=== PATIENT | female | born 1965 ===

== ENCOUNTER 2017-08-20 07:18 | Emergency (ER) | payer SELFPAY ==
--- NOTE | 2017-08-20 08:11 | UC ---
Shoulder Pain HPI - HPI Summary HPI Summary: 2 days of right shoulder pain began after lifting a dog and putting it in to a cage at work. - History of Current Complaint Chief Complaint: UCUpperExtremity Stated Complaint: RIGHT SHOULDER Time Seen by Provider: 08/20/17 08:04 Hx Obtained From: Patient ?: No Onset/Duration: Sudden Onset, Lasting Days - 2, Worse Since - daily Timing: Constant Severity Initially: Severe Severity Currently: Severe Location Of Pain: Is Discrete @ - anterior right shoulder Pain Intensity: 10 Pain Scale Used: 0-10 Numeric Character: Aching, Stiffness Aggravating Factor(s): Movement Alleviating Factor(s): OTC Meds Associated Signs And Symptoms: Positive: Negative Related History: Occupational Injury, Dominant Hand Right - Allergies/Home Medications Allergies/Adverse Reactions: Allergies Allergy/AdvReac Type Severity Reaction Status Date / Time Codeine Allergy Severe Nausea And Verified 08/20/17 07:38 Vomiting Hydrocodone Allergy Severe Nausea And Verified 08/20/17 07:37 Vomiting Morphine Allergy Severe Nausea And Verified 08/20/17 07:37 Vomiting PMH/Surg Hx/FS Hx/Imm Hx Previously Healthy: No Respiratory History: COPD GI/ History: Gastroesophageal Reflux - Surgical History Surgical History: Yes Surgery Procedure, Year, and Place: Hysterectomy age 19. Ovary Removed - Family History Known Family History: Positive: None - Social History Occupation: Employed Full-time Lives: With Family Alcohol Use: Rare Substance Use Type: None Smoking Status (MU): Current Some Day Smoker Amount Used/How Often: ppd Have You Smoked in the Last Year: Yes Household Exposure Type: Cigarettes Cessation Counseling: Counseled 3+Min - 10 Min Review of Systems Constitutional: Negative Skin: Negative Eyes: Negative ENT: Negative Respiratory: Negative Cardiovascular: Negative Gastrointestinal: Negative Genitourinary: Negative Motor: Decreased ROM - right shoulder Neurovascular: Negative Musculoskeletal: Arthralgia - right shoulder Neurological: Negative Psychological: Negative Is Patient Immunocompromised?: No All Other Systems Reviewed And Are Negative: Yes Physical Exam Triage Information Reviewed: Yes Appearance: Ill-Appearing - appears older than statred age, Pain Distress, Thin Vital Signs: Initial Vital Signs Temp 97.1 F 08/20/17 07:27 Pulse 91 08/20/17 07:27 Resp 16 08/20/17 07:27 BP 151/76 08/20/17 07:27 Pulse Ox 97 08/20/17 07:27 Vital Signs Reviewed: Yes Eye Exam: Normal Eyes: Positive: Conjunctiva Clear ENT Exam: Normal ENT: Positive: Normal ENT inspection, Hearing grossly normal. Negative: Nasal congestion, Nasal drainage, Trismus, Muffled voice, Hoarse voice Dental Exam: Normal Neck exam: Normal Neck: Positive: Supple, Nontender Respiratory Exam: Normal Respiratory: Positive: Chest non-tender, No respiratory distress, No accessory muscle use Cardiovascular Exam: Normal Cardiovascular: Positive: RRR, No Murmur, Brisk Capillary Refill Musculoskeletal Exam: Other Musculoskeletal: Positive: No Edema, Strength Limited @, ROM Limited @ Neurological Exam: Normal Neurological: Positive: Alert, Muscle Tone Normal Psychological Exam: Normal Skin Exam: Normal Diagnostics - Radiology No standard instances Xray Interpretation: No Acute Changes Radiology Interpretation Completed By: ED Physician, Radiologist Shoulder Course/Dx - Course Assessment/Plan: ibuprofen, physical therapy, follow with ortho, follow bp with pcp - Differential Dx/Diagnosis Provider Diagnoses: nicotine dependent, elevated BP without diagnosis of Hypertension, right shoulder strain Discharge - Discharge Plan Condition: Stable Disposition: HOME Prescriptions: Ibuprofen TAB* [Motrin TAB* 600 MG] 600 mg PO Q6H PRN #30 tab PRN Reason: Pain Patient Education Materials: How to Stop Smoking (ED), Hypertension (ED), Shoulder Pain (ED), Exercises for Shoulder Flexion and Extension (ED), Exercises for Internal and External Shoulder Rotation (ED), Exercises for Shoulder Abduction and Adduction (ED) Forms: *Work Release Referrals: Cortney Carter MD [Primary Care Provider] - 1 Week Cole Perkins MD [Medical Doctor] - 3 Days ()
--- NOTE | 2017-08-20 09:00 | RAD ---
INDICATION: Right shoulder pain after lifting COMPARISON: None. TECHNIQUE: 4 views of the right shoulder were obtained. FINDINGS: The adequately corticated bones are in normal alignment. Joint spaces appear maintained. No fracture, dislocation or focal bony abnormality is seen. IMPRESSION: Normal radiograph of the right shoulder. If the patient's symptoms persist, follow-up imaging is recommended.
[2017-08-20] MEDS ORDERED: Ibuprofen TAB* 600 MG PO ONE (09:07)
== END 2017-08-20 09:35 | disposition home or self-care (01) ==
LOC: UCEAST 07:18
DX: S46.911A Strain of unspecified muscle, fascia and tendon at shoulder and upper arm level, right arm, initial encounter (principal); X50.0XXA Overexertion from strenuous movement or load, initial encounter; Y93.89 Activity, other specified; Y92.9 Unspecified place or not applicable; Y99.9 Unspecified external cause status; F17.200 Nicotine dependence, unspecified, uncomplicated; R03.0 Elevated blood-pressure reading, without diagnosis of hypertension
CPT/HCPCS: 99213; A9270-GY; G0463

== ENCOUNTER 2019-06-09 15:05 | Emergency (ER) | payer BC, OTHER ==
[2019-06-09] MEDS ORDERED: Nitroglycerin TAB 0.4 MG* 0.4 MG TAB SL ONE (15:53)
--- NOTE | 2019-06-09 15:53 | ED ---
HPI Chest Pain - HPI Summary HPI Summary: This pt is a 54 Y/O F presenting to [facility] with a CC of left anterior CP that has been present since eating 2-3 bites of her sandwich at 1330 and is currently rated a 10/10 in severity. She states that she can feel it radiating into her back. She states that she has a little bit of associated nausea but has not vomited yet. She states that when she swallows her pain is increased. She was diaphoretic and had chills at the onset of the pain. She denies any recent travel, new edema in her legs, vomiting, headaches, and SOB. She states that there is a large family history of cardiac and stroke issues including Hx of CVAs in her younger siblings, and MIs in her older sister. She has a PMHx of a mitral valve collapse and COPD. She recently was diagnosed with a hiatal hernia. - History of Current Complaint Chief Complaint: EDChestPainROMI Time Seen by Provider: 06/09/19 15:26 Hx Obtained From: Patient Onset/Duration: Started Hours Ago - 2, Still Present Time of Onset: 13:30 Timing: Constant Initial Severity: Severe Current Severity: Severe Pain Intensity: 10 Pain Scale Used: 0-10 Numeric Chest Pain Location: Left Anterior Chest Pain Radiates: Yes Chest Pain Radiates To:: Back Aggravating Factor(s): Other: - swallowing food or liquid Alleviating Factor(s): Nothing Associated Signs and Symptoms: Positive: Chest Pain - Left anterior, Chills, Diaphoresis, Nausea, Back Pain - radiated back pain. Negative: Headaches, Shortness of Breath, Fever, Vomiting, Edema - Allergy/Home Medications Allergies/Adverse Reactions: Allergies Allergy/AdvReac Type Severity Reaction Status Date / Time codeine Allergy Severe Nausea And Verified 06/09/19 17:39 Vomiting hydrocodone Allergy Severe Nausea And Verified 06/09/19 17:39 Vomiting morphine Allergy Severe Nausea And Verified 06/09/19 17:39 Vomiting Home Medications: Home Medications Fluticasone-Salmeterol 500-50* [Advair Diskus 500-50*] 1 puff INH BID 06/09/19 [ History Confirmed 06/09/19] Levalbuterol Tartrate [Levalbuterol Tartrate Hfa] 1 dose INH DAILY 06/09/19 [ History Confirmed 06/09/19] PMH/Surg Hx/FS Hx/Imm Hx Endocrine/Hematology History: Denies: Hx Diabetes, Hx Thyroid Disease Cardiovascular History: Denies: Hx Hypertension Respiratory History: Reports: Hx Chronic Obstructive Pulmonary Disease (COPD) Denies: Hx Asthma GI History: Denies: Hx Ulcer - Surgical History Surgery Procedure, Year, and Place: Hysterectomy age 19. Ovary Removed Infectious Disease History: No Infectious Disease History: Reports: Hx Clostridium Difficile - Denies: Hx Hepatitis, Hx Human Immunodeficiency Virus (HIV), Hx of Known/ Suspected MRSA, Hx Shingles, Hx Tuberculosis, Hx Known/Suspected VRE, Hx Known/ Suspected VRSA, History Other Infectious Disease, Traveled Outside the [place] in Last 30 Days - Family History Known Family History: Positive: None - Social History Alcohol Use: Rare Substance Use Type: Reports: None Smoking Status (MU): Current Some Day Smoker Amount Used/How Often: ppd Have You Smoked in the Last Year: Yes Review of Systems Positive: Chills, Skin Diaphoresis. Negative: Fever Positive: Chest Pain - Left anterior Negative: Shortness Of Breath Positive: Nausea. Negative: Vomiting Negative: Edema Negative: Headache All Other Systems Reviewed And Are Negative: Yes Physical Exam - Summary Physical Exam Summary: Constitutional: Well-developed, Well-nourished, Alert. (-) Distressed Skin: Warm, Dry HENT: Normocephalic; Atraumatic Eyes: Conjunctiva normal Neck: Musculoskeletal ROM normal neck. (-) JVD, (-) Stridor, (-) Tracheal deviation Cardio: Rhythm regular, rate normal, Heart sounds normal; Intact distal pulses; The pedal pulses are 2+ and symmetric. Radial pulses are 2+ and symmetric. (-) Murmur Pulmonary/Chest wall: Effort normal. (-) Respiratory distress, (-) Wheezes, (-) Rales Abd: Soft, Mild epigastric tenderness, (-) Distension, (-) Guarding, (-) Rebound Musculoskeletal: (-) Edema Lymph: (-) Cervical adenopathy Neuro: Alert, Oriented x3 Psych: Mood and affect Normal Triage Information Reviewed: Yes Vital Signs On Initial Exam: Initial Vitals Temp Pulse Resp BP Pulse Ox 98.1 F 89 14 154/82 98 06/09/19 15:10 06/09/19 15:10 06/09/19 15:10 06/09/19 15:10 06/09/19 15:10 Vital Signs Reviewed: Yes Diagnostics - Vital Signs Vital Signs Temp Pulse Resp BP Pulse Ox 06/09/19 15:10 98.1 F 89 14 154/82 98 - Laboratory Result Diagrams: 06/09/19 15:54 06/09/19 15:54 Lab Statement: Any lab studies that have been ordered have been reviewed, and results considered in the medical decision making process. - Radiology CXR Radiology Interpretation Completed By: Radiologist Summary of Radiographic Findings: No acute cardiopulmonary diseaes. ED physician has reviewed this report. - EKG 1507 Cardiac Rate: NL - 94 BPM EKG Rhythm: Sinus Rhythm Ectopy: None Summary of EKG Findings: EKG taken at 1507 found a NSR at 94 BPM, minimal ST depression in AVF 2 and 3. No STEMI. Interpreted by Dr. Pichardo at 1514 06/09/19. Re-Evaluation - Re-Evaluation First Eval Re-Evaluation Time: 17:28 Change: Improved Comment: Pt reports feeling better but states that she still has some pain. Chest Pain Course/Dx - Course Course Of Treatment: Patient is here left-sided chest pain. Patient has a history of hiatal hernia cepacia was given nitroglycerin with drink a large soda to try to see if she had a food bolus second being manipulated. This was unsuccessful. Patient EKG which showed a significant depression in her inferior leads. Patient's serial troponins which were negative. Patient has a high-risk story with EKG changes so she was offered admission but she declined. Patient left AGAINST MEDICAL ADVICE with an outpatient stress test. - Diagnoses Provider Diagnoses: Chest pain - Provider Notifications Discussed Care Of Patient With: Judyestela Adorno Time Discussed With Above Provider: 19:49 Instructed by Provider To: Admit As Inpatient Admit/Transition Orders Completed By ED Provider: Yes Discharge ED - Sign-Out/Discharge Documenting (check all that apply): Patient Departure - AMA Patient Received Moderate/Deep Sedation with Procedure: No - Discharge Plan Condition: Stable Disposition: AGAINST MEDICAL ADVICE Patient Education Materials: Chest Pain (ED) Referrals: [facility] [Outside] - As Soon As Possible Cortney Carter MD [Primary Care Provider] - 3 Days Additional Instructions: PLEASE RETURN TO THE EMERGENCY DEPARTMENT FOR ANY NEW OR WORSENING SYMPTOMS. Follow up with the [facility] to schedule a cardiac stress test. Follow up with your Primary Care Provider in 1-3 days. You are deciding to leave AMA. The risks of leaving have been described to you and may include . The benefits of being admitted for further evaluation have also been expressed to you. - Billing Disposition and Condition Condition: STABLE Disposition: Against Medical Advice - Attestation Statements Document Initiated by Kim: Yes Documenting Scribe: Hieu Dunlap Provider For Whom Kim is Documenting (Include Credential): Colin Pichardo MD Scribe Attestation: Hieu Thomas, scribed for Colin Pichardo MD on 06/09/19 at 2123. Scribe Documentation Reviewed: Yes Provider Attestation: The documentation as recorded by the Hieu evans accurately reflects the service I personally performed and the decisions made by Colin gao MD Status of Scribe Document: Viewed
[2019-06-09 16:02] LABS: ABS Basophils 0.1 10^3/ul (0-0.2); ABS Eosinophils 0.1 10^3/ul (0-0.6); ABS Lymphocytes 1.7 10^3/ul (1.0-4.8); ABS Monocytes 0.6 10^3/ul (0-0.8); ABS Neutrophils 5.6 10^3/ul (1.5-7.7); Eosinophil % 1.3 %; Hematocrit 44 % (35-47); Hemoglobin 15.2 g/dL (12.0-16.0); Mean Corpuscular HGB Conc 34 g/dL (31-36); Mean Corpuscular Hemoglobin 30 pg (27-31); Mean Corpuscular Volume 86 fL (80-97); Mean Platelet Volume 7.5 fL (7.4-10.4); Nucleated Red Blood Cells % 0.1; Platelet Count 228 10^3/uL (150-450); Red Blood Count 5.15 10^6 /uL (3.70-4.87); Red Cell Distribution Width 14 % (10-15); White Blood Count 8.2 10^3/uL (3.5-10.8)
[2019-06-09 16:07] LABS: INR 0.98 (0.82-1.09)
[2019-06-09 16:21] LABS: Albumin 4.6 g/dL (3.2-5.2); BUN/Creatinine Ratio 12.6 (8-20); Calcium 9.7 mg/dL (8.6-10.3); EGFR African American 81.5 (>60); EGFR Non-African American 67.4 (>60); Globulin 2.3 g/dL (2-4); Total Bilirubin 0.6 mg/dL (0.2-1.0); Total Protein 6.9 g/dL (6.4-8.9)
[2019-06-09] MEDS ORDERED: Aspirin 81 mg CHEW TAB* 81 MG TAB.CHEW PO ONE (17:23)
[2019-06-09 20:58] VITALS: BP 140/77
--- NOTE | 2019-06-09 23:50 | CONS ---
CC: Dr. Carter; Dr. Pichardo CONSULTATION REPORT: DATE OF CONSULT: 06/09/19 TIME OF EVALUATION: 08:50 p.m. PRIMARY CARE PROVIDER: Dr. Carter REQUESTING PHYSICIAN: Dr. Pichardo CHIEF COMPLAINT: Chest pain. HISTORY OF PRESENT ILLNESS: Mrs. Jones is a 54-year-old lady with a past medical history of COPD, tobacco abuse, hiatal hernia, who presented to the emergency room with complaints of chest pain. She states that around 1:30, she ate a sandwich and started to have left-sided chest pain radiating t o her back. There was some nausea associated with it, but no vomiting. She described that every yary e she swallowed, the pain would get worse and then it would improve. She had some diaphoresis when t he pain started, but denied palpitations, shortness of breath, or other complaints. She states that she has had this chest pain on and off for the past couple of months, but she could n ot notice anything that would make it better or worse. She states the pain today was really severe, reason why she decided to come to the emergency room for further evaluation. At the time of my evalu ation, she stated that chest pain is gone and she wishes to go home to follow up with her primary car e provider as outpatient. PAST MEDICAL HISTORY: 1. COPD. 2. Tobacco abuse. 3. Hiatal hernia. MEDICATION LIST: 1. Levalbuterol 1 puff inhaled daily. 2. Advair 500/50 one puff inhaled b.i.d. FAMILY HISTORY: The patient states that she has 9 siblings "all of them had a heart attack or stroke ." She states that her older brother that was only a couple of years older than her of massive heart attack a couple of years ago. SOCIAL HISTORY: The patient is a smoker of 1 pack a day since age 10. She denies alcohol or drug us e. Surrogate decision maker is her son, Ramiro Ramires, phone number is [phone]. REVIEW OF SYSTEMS: A 14-point review of system was performed and all the pertinent negative and posi tive findings are in the HPI. PHYSICAL EXANIMATION: Vital Signs: Temperature 98.1, heart rate 89, respiratory rate is 19, oxygen saturation 98% on room air, blood pressure 140/77. General: The patient is pleasant lady that appear s older than stated age, sitting up on the ED stretcher, in no acute distress. HEENT: Pupils are eq ual. Moist mucous membranes. CVS: Normal S1, S2. Regular rate and rhythm. Chest: Breath sounds bilaterally diminished, but no added sounds. Abdomen: Soft. Bowel sounds present. Extremities: N o edema. Neuro: She is alert x3, able to move all 4 extremities. LABORATORY/IMAGING DATA: The patient had a CBC that showed WBC of 8.2, hemoglobin of 15.2, hematocri t of 44, platelets of 228, 68% neutrophils. INR is 0.98. Chemistry showed a sodium of 136, potassium of 4, chloride 101, bicarb of 28, BUN of 11, creatinine of 0.87, glucose of 133, calcium 9.7. LFTs are normal. Troponin is negative x2. EKG done on 06/09/19 at 3 p.m. showed sinus rhythm at 94 beats per minute with subtle ST depressions in 2, 3, and aVF. There is no prior EKG to compare. Chest x-ray showed no radiographic evidence of acute cardiopulmonary disease and I looked at the film s and to my eye, do not see any acute disease. Her diaphragm is flat and suggestive of hyperinflatio n and her anteroposterior diameter is increased also compatible with hyperinflation/COPD. ASSESSMENT AND PLAN: Mrs. Jones is a 54-year-old lady with past medical history of hiatal hernia, chronic obstructive pulmonary disease, tobacco abuse, who presented to the emergency room with compl aints of chest pain after eating a sandwich. Her episode today appears to be GI in nature. Her chest pain radiating to the back after swallowing, suggests that may be this is still got stuck and eventually she was able to clear up and had improve ment of her pain, but I am concerned that she has had episodes of chest pain for the past couple of m onths with no provoking or alleviating factors and has significant risk factors for heart disease inc luding her tobacco abuse and her significant family history. My recommendation is the patient be admitted, so we can continue her workup including, but not limite d to a CTA of the chest to look at her aorta and also an exercise Myoview stress test. I explained to the patient that although her troponins are negative that is not enough to say that ruba baez does not have heart disease. I expressed my concern with her EKG that showed subtle changes, but i deally if she were admitted, we could do serial EKGs and compare to see if there is any progression. The patient is very clear that she will not stay in the hospital for admission and she wishes to be d ischarged from the emergency room. She states that she understands the risks of the decision and she is willing to take them. I explained that with the results she has had so far, I cannot say that ruba baez is having a heart attack and she interrupted me and said "I know I can have a heart attack in the p arking lot and I can at any time, but I am going home anyway." I believe the patient understands the explanation and has the capacity to make this decision. I had requested an outpatient cardiac stress test with [facility] and the patient states that she is willing to have this done as outpatient, the results will be sent to Dr. Carter. Before leaving the room , I asked the patient once more if she would be willing to stay overnight and complete her workup her e as this would be a factor and she could go home tomorrow with all the tests done, but she states th at she is feeling much better and she would rather sleep in her own home tonight and she will contact [facility] tomorrow to have her stress test then followup with Dr. Carter. I believe the patient would benefit of being on an aspirin as outpatient and also having further work up including lipid profile to stratify risk of cardiac disease. Her heart score is 4 (moderate suspicious history, nonspecific localization disturbance on EKG, age a nd 1 or 2 risk factors) what gives her 13% risk for major acute coronary cardiac event. I explained to the patient her risk score and she verbalizes understanding and states that she will follow up as soon as possible with her primary care provider, but she continues to decline admission. I discussed my recommendations with Dr. Pichardo in the emergency room and he will discharge the patie nt against medical advice from the department. TIME SPENT: Approximately 45 minutes was spent with the patient interview, medical records review, p hysical examination to complete this consultation, more than half of this time was spent [id number] with the patient in coordination of care. [id number]/[facility] #: [id number]
== END 2019-06-09 21:15 | disposition left against medical advice (07) ==
LOC: ED 15:05
DX: R07.89 Other chest pain (principal); R11.0 Nausea; M54.9 Dorsalgia, unspecified; Z79.899 Other long term (current) drug therapy; J44.9 Chronic obstructive pulmonary disease, unspecified; Z72.0 Tobacco use
CPT/HCPCS: 36415; 71046; 80053; 83690; 84484; 85025; 85610; 93005; 99284; A9270-GY